=== PATIENT | male | born 1945 | race Hispanic/Latino ===

== ENCOUNTER → 2018-11-08 | Outpatient (CLI) | payer OTHER | END | disposition home or self-care (01) | LOC: OIH 16:48 | PROVIDERS: ATTEND Internal Medicine | DX: I10 Essential (primary) hypertension (principal); Q25.49 Other congenital malformations of aorta | CPT/HCPCS: 71046 ==

== ENCOUNTER 2019-10-03 18:55 | Emergency (ER) | payer OTHER | END 2019-10-03 19:30 | disposition home or self-care (01) | LOC: EDH 18:55 | DX: S40.022A Contusion of left upper arm, initial encounter (principal); S80.12XA Contusion of left lower leg, initial encounter; Z87.891 Personal history of nicotine dependence; V49.40XA Driver injured in collision with unspecified motor vehicles in traffic accident, initial encounter; Y93.89 Activity, other specified; Y92.488 Other paved roadways as the place of occurrence of the external cause; Y99.8 Other external cause status ==

== ENCOUNTER → 2019-10-27 | Outpatient (CLI) | payer OTHER | END | disposition home or self-care (01) | LOC: OIH 09:51 | PROVIDERS: ATTEND Internal Medicine | DX: I10 Essential (primary) hypertension (principal); M47.814 Spondylosis without myelopathy or radiculopathy, thoracic region; I70.0 Atherosclerosis of aorta | CPT/HCPCS: 71046 ==

== ENCOUNTER 2021-10-23 17:09 | Emergency (ER) | payer OTHER ==
[~2021-10-23] VITALS: Ht 175.3 cm; Wt 68.0 kg
[2021-10-23] MEDS ORDERED: KETOROLAC 30MG VIAL (30MG/ML) IM ONE (19:00)
[2021-10-23 19:25] VITALS: BP 131/70
[2021-10-23] MEDS ORDERED: IBUP-2070 PO (20:22)
[2021-10-23] MEDS ORDERED: TIZA2CAP9 PO (20:22)
== END 2021-10-23 20:32 | disposition home or self-care (01) ==
LOC: EDH 17:09
DX: M54.2 Cervicalgia (principal); E78.00 Pure hypercholesterolemia, unspecified; Z98.890 Other specified postprocedural states; Z79.899 Other long term (current) drug therapy; W10.9XXA Fall (on) (from) unspecified stairs and steps, initial encounter; Y93.01 Activity, walking, marching and hiking; Y92.89 Other specified places as the place of occurrence of the external cause; Y99.8 Other external cause status
CPT/HCPCS: 72125; 96372; 99284; J1885